=== PATIENT | female | born 1960 | race Caucasian/White ===

== ENCOUNTER 2017-09-27 06:57 | Observation (INO) | payer OTHER ==
[~2017-09-27] VITALS: Ht 160 cm; Wt 63.0 kg
--- NOTE | ~2017-09-27 | EC ---
PATIENT:LUPE ESCUDERO DATE OF SERVICE: 09/27/17 SEX: F MEDICAL RECORD: [id number] DATE OF : 60 LOCATION:D.M2 D.211 AGE OF PATIENT: 57 ADMISSION DATE: 09/27/17 REFERRING PHYSICIAN: INTERPRETING PHYSICIAN: HAILE HANKS MD ECHOCARDIOGRAM REPORT ECHO CHARGES 4 ECHO COMPLETE Date: 09/27 CLINICAL DIAGNOSIS: CP ECHOCARDIOGRAPHIC MEASUREMENTS (adult normal given) AC root (d.<3.7cm) 2.8 cm LV Septum d (<1.2 cm> 1.3 cm Valve Excursion 1.8 cm LV Septum (systole) 1.9 cm Left Atria (s.<4.0cm> 3.5 cm LVPW d(<1.2cm) 1.1 cm RV (d.<2.3cm) 2.3 cm LVPW (sytole) 1.6 cm LV diastole(<5.6CM) 4.6 cm MV E-F(>70mm/sec) cm LV systole 2.4 cm LVOT Diameter 1.7 cm MV exc.(>10mm) cm Est.ejection fraction (50-75%) % DOPPLER: LVIT cm/sec A 69.0 cm/sec E 98.0 cm/sec LA cm/sec RVSP 41.0 mmHg LVOT 95.0 cm/sec AOP1/2T m/s Asc. Ao 136 cm/sec RVOT 65.0 cm/sec RA cm/sec PA 73.0 cm/sec AV Gradient Peak 7.4 mmHg AV Mean 3.6 mmHg AV Area 1.5 cm MV Gradient Peak 3.7 mmHg MV Mean 1.3 mmHg MV Area cm COMMENTS: Seo Professional: 1 [place] Dark Room Attendant: 4 Dr. Hanks TAPE# PACS Pericardial Effusion N DATE OF SERVICE: PROCEDURE: Transthoracic echocardiogram. FINDINGS: 1. Left ventricle normal size, normal shape, normal function. Ejection fraction 65%. 2. Left atrium is normal size, shape and function. 3. Aortic valve is normal. 4. Mitral valve: Trace mitral regurgitation and structurally normal. ECHOCARDIOGRAM REPORT [id number] LUPE ESCUDERO 5. Tricuspid valve is structurally normal with mild to moderate tricuspid regurgitation with an RVSP of 35-40 mmHg. 6. The pericardium is normal. 7. Right ventricle is normal. 8. The right atrium is normal. 9. The pulmonic valve has trace pulmonic insufficiency. 10. There is no pericardial effusion. CONCLUSION: This patient has mild left ventricular hypertrophy, otherwise normal echocardiogram. TRANSINT:[id number] Voice Confirmation ID: [id number] DOCUMENT ID: [id number] HAILE HANKS MD at 0819 CC: [id number] DICTATION DATE: 09/28/17 1010 AWARD MACHINE OPERATOR: 09/28/17 1424 DIS IN 09/28/17 [facility] [address] [place] [address]
--- NOTE | ~2017-09-27 | HEMODYNAMI ---
PATIENT:LUPE ESCUDERO MEDICAL RECORD: [id number] : 60 LOCATION:[facility] D.2118 ADMISSION DATE: 09/27/17 Generatedon:09/28/201714:37 Patient name: LUPE ESCUDERO Patient #: [id number] SSN: DO B: 1960 Date of study: 09/28/2017 Page: Of Hemodynamic Procedure Report Patient Data Patient Demographics Procedure consent was obtained First Name: LUPE Gender: Female Last Name: KOTA : 1960 Patient #: [id number] Age: 57 year(s) Race: Unknown Additional ID: [id number] Contact details Address: [address] [facility] [id number] State: [place] City: [place] Zip code: [address] Past Medical History Allergies Allergen Reaction Date Comments Reported Sulfa drugs 09/28/2017 Admission Admission Data Admission Date: 09/27/2017 Admission Time: 10:08 Room #: D.2118 Procedure Procedure Types Cath Procedure Diagnostic Procedure LHC LHC w/Coronaries Procedure Description Procedure Date Procedure Date: 09/28/2017 Procedure Start Time: 14:27 Procedure End Time: 14:36 Procedure Staff Name Function Rustam Larsen MD Performing Physician Sophia Velez RT Monitor Sherrell Almeida RN Nurse Anthony Covington RT Scrub Procedure Data Cath Procedure Fluoroscopy Diagnostic fluoroscopy Total fluoroscopy Time: 0.5 time: 0.5 min min Diagnostic fluoroscopy Total fluoroscopy dose: 209 dose: 209 mGy mGy Contrast Material Contrast Material Type Amount (ml) Isovue 370 30 Entry Location Entry Primary Successful Side Size Upsize Upsize Entry Closure [place] ccessful Closure Location (Fr) 1 (Fr) 2 (Fr) Remarks Device Remarks Radial Right 6 Fr Mechanical artery Short Compression Estimated blood loss: 5 ml Diagnostic catheters Device Type Used For End Catheter Placement DIAGNOSTIC [place] 110cm 5 LV Angiography Fr catheter ([id number]) DIAGNOSTIC [place] 110cm 5 Left Coronary Fr catheter ([id number]) Angiography DIAGNOSTIC [place] 110cm 5 Right Coronary Fr catheter (016686) Angiography Procedure Complications No complications Procedure Medications Medication Administration Route Dosage Oxygen NC 2 l/min Lidocaine 2% added to field 20 Heparin Flush Bag added to field 2 bags (1000units/500ml NS) 0.9% NaCl I.V. 100 ml/hr Radial Cocktail added to field 1 syringe (Verapomil 2mg/Nitro 400mcg/Heparin 1500units) Versed I.V. 1 mg Fentanyl I.V. 50 mcg Versed I.V. 1 mg Fentanyl I.V. 50 mcg Versed I.V. 1 mg Fentanyl I.V. 50 mcg Versed I.V. 1 mg Fentanyl I.V. 50 mcg Hemodynamics Rest Heart Rate: 54 (bpm) Pressure Samples Time Site Value (mmHg) Purpose Heart Use Rate(bpm) 14:30 LV 110/3,3 EDP 60 14:31 AO 84/62(73) Pullback 67 Gradients Valve Time Site Site 2 Mean SEP/DFP Peak To Heart Use 1 (mmHg) (sec/min) Peak Rate (mmHg) (bpm) Aortic 14:31 LV AO 67 84/62(73) Snapshots Pre Cath Intra NCS Post Cath Vital Signs Time Heart Resp SPO2 etCO2 NIBP (mmHg) Rhythm Pain Sedation Rate (ipm) (%) (mmHg) Status Level (bpm) 13:56:53 54 20 98 0 126/82(102) NSR 0 (11) 10(A) , No pain 14:01:32 53 20 98 21.7 117/71(91) NSR 0 (11) 10(A) , No pain 14:06:08 54 15 98 12 104/71(85) NSR 0 (11) 10(A) , No pain 14:10:41 54 16 99 17.2 112/74(94) NSR 0 (11) 10(A) , No pain 14:15:17 52 15 97 21 110/68(83) NSR 0 (11) 10(A) , No pain 14:19:52 51 16 96 11.2 107/70(85) NSR 0 (11) 10(A) , No pain 14:25:11 49 15 99 12 101/58(71) NSR 0 (11) 9(A) , No pain 14:29:44 54 12 98 6.7 114/74(92) NSR 0 (11) 9(A) , No pain 14:34:20 63 15 97 15 97/55(77) NSR 0 (11) 10(A) , No pain Medications Time Medication Route Dose Verified Delivered Reason Notes Effectiveness by by 14:14:48 Oxygen NC 2 l/min Rustam Wynne used for [facility] Almeida RN procedure 14:14:55 Lidocaine 2% added 20ml Rustam Rustam for local to vial [facility] anesthetic field MD ORTIZ 14:15:02 Heparin Flush added 2 bags Rustam Easton used for Bag to [facility] procedure (1000units/500ml field MD ORTIZ NS) 14:15:12 0.9% NaCl I.V. 100 Rustam Polkie Per ml/hr [facility] Earl Almeida RN physician 14:15:59 Versed I.V. 1 mg Rustam Polkie for sedation [facility] Almeida RN, MD 14:16:06 Fentanyl I.V. 50 mcg Rustam Polkie for sedation [facility] Almeida RN, MD 14:20:25 Versed I.V. 1 mg Rustam Polkie for sedation [facility] Almeida RN, MD 14:20:28 Fentanyl I.V. 50 mcg Rustam Polkie for sedation [facility] Al[facility] RN, MD 14:24:47 Versed I.V. 1 mg Rustam Polkie for sedation [facility] Almeida RN, MD 14:24:50 Fentanyl I.V. 50 mcg Rustam Polkie for sedation [facility] Al[facility]ida RN, MD 14:30:11 Radial Cocktail added 1 Rustam Rustam for (Verapomil to syringe [facility] vasodilation 2mg/Nitro field MD ORTIZ 400mcg/Heparin 1500units) 14:31:50 Versed I.V. 1 mg Rustam Polkie for sedation [facility] Almeida RN, MD 14:31:54 Fentanyl I.V. 50 mcg Rustam Polkie for sedation [facility] Earl Almeida RN, MD Procedure Log Time Note 13:13:25 Time tracking: Regular hours (M-F 7:00 - 5:00) 13:13:30 Plan of Care:Hemodynamics will remain stable., Cardiac rhythm will remain stable., Comfort level will be maintained., Respiratory function will remain adequate., Patient/ family verbilizes understanding of procedure., Procedure tolerated without complication., Recovers from procedure without complications.. 13:37:30 Sophia Velez RT(R) sent for patient. Start room use. 13:46:51 Patient received from PCU to CCL 1 Alert and oriented. Tansferred to table in Supine position. 13:56:05 Warm blankets applied, and trudi hugger turned on for patient comfort. 13:56:06 Correct patient and procedure confirmed by team. 13:56:07 Signed procedure consent form obtained from patient. 13:56:08 ECG and BP/O2 sat monitors applied to patient. 13:56:08 Vital chart was started 14:00:29 Full Disclosure recording started 14:00:31 Rhythm: sinus rhythm 14:00:35 Baseline sample Acquired. 14:01:00 H&P Date Dictated: 09/27/2017 Within 30 days and on chart.. 14:01:01 Pre-procedure instructions explained to patient. 14:01:01 Pre-op teaching completed and patient verbalized understanding. 14:01:03 Family in patients room. 14:01:13 Patient NPO since Midnight. 14:01:27 Patient allergic to Sulfa drugs 14:01:29 Is the patient allergic to Iodine/contrast media? No. 14:01:31 Is patient on blood thinner?No 14:01:34 Patient diabetic? No. 14:01:39 Previous problem with sedation/anesthesia? No ? 14:01:40 Snore? Yes 14:01:41 Sleep apnea? No 14:01:42 Deviated septum? No 14:01:43 Opens mouth fully? Yes 14:01:44 Sticks out tongue? Yes 14:01:46 Airway obstruction? No ? 14:01:48 Dentures? No ? 14:01:51 Pre procedure: right dorsailis pedis pulse 2+ Normal; easily identifiable; not easily obliterated 14:01:53 Modified Jose David's test Ulnar < 7 seconds 14:01:55 Patient pain scale 0/10 ?. 14:02:00 IV patent on arrival in right forearm with 0.9% NaCl at [facility]. 14:02:04 Lab results completed and on chart. 14:02:10 Right Radial & Right Groin area was prepped with chlora-prep and draped in sterile fashion 14:02:11 Alarms reviewed by R. N. 14:02:11 Sharps counted by scrub and verified by R.N. 14:03:23 Use device set Radial Dx or PCI 14:03:24 ACIST Syringe (78636) opened to sterile field. 14:03:24 Medline Cath Pack ([id number]) opened to sterile field. 14:03:25 Bag Decanter (2001S) opened to sterile field. 14:03:25 DIAGNOSTIC WIRE .035 260cm J wire (639833) opened to sterile field. 14:03:26 ACIST Hand Control (06726) opened to sterile field. 14:03:26 ACIST Manifold (58581) opened to sterile field. 14:03:27 Tegaderm 4 x 4 (1626W) opened to sterile field. 14:03:29 MBrace Wrist Support ([id number]) opened to sterile field. 14:03:30 SHEATH 6Fr Prelude Radial ([id number]) opened to sterile field. 14:10:17 Final Timeout: patient, procedure, and site verified with staff and physician. All members of the team are in agreement. 14:10:25 Right Radial site verified by team. 14:10:28 Physical assessment completed. ASA score P 2 - A patient with mild systemic disease as per Rustam Larsen MD. 14:10:32 Sedation plan: IV Moderate Sedation Medication:Versed, Fentanyl 14:14:48 Oxygen 2 l/min NC was administered by Sherrell Almeida RN; used for procedure; 14:14:55 Lidocaine 2% 20ml vial added to field was administered by Rustam Larsen MD; for local anesthetic; 14:15:02 Heparin Flush Bag (1000units/500ml NS) 2 bags added to field was administered by Rustam Larsen MD; used for procedure; 14:15:12 0.9% NaCl 100 ml/hr I.V. was administered by Sherrell Almeida RN; Per physician; 14:15:59 Versed 1 mg I.V. was administered by Sehrrell Almeida RN; for sedation; 14:16:06 Fentanyl 50 mcg I.V. was administered by Sherrell Almeida RN; for sedation; 14:16:13 Zero performed for pressure channel P1 14:20:25 Versed 1 mg I.V. was administered by Sherrell Almeida RN; for sedation; 14:20:28 Fentanyl 50 mcg I.V. was administered by Sherrell Almeida RN; for sedation; 14:24:47 Versed 1 mg I.V. was administered by Sherrell Almeida RN; for sedation; 14:24:50 Fentanyl 50 mcg I.V. was administered by Sherrell Almeida RN; for sedation; 14:27:48 Procedure started. 14:27:57 Local anesthetic to right radial artery with Lidocaine 2% by Rustam Larsen MD.INITIAL ACCESS ONLY 14:29:47 A 6 Fr Short sheath was inserted into the Right Radial artery 14:30:08 A DIAGNOSTIC [place] 110cm 5 Fr catheter ([id number]) was advanced over the wire and used for LV Angiography. 14:30:11 Radial Cocktail (Verapomil 2mg/Nitro 400mcg/Heparin 1500units) 1 syringe added to field was administered by Rustam Larsen MD; for vasodilation; 14:31:00 LV gram done using KNOX 14:31:04 Injector settings: Ml/sec: 5, Volume: 15, 14:31:06 LV hemodynamics recorded. 14:31:10 EF : 60 % 14:31:50 Versed 1 mg I.V. was administered by Sherrell Almeida RN; for sedation; 14:31:50 A DIAGNOSTIC [place] 110cm 5 Fr catheter ([id number]) was advanced over the wire and used for Left Coronary Angiography. 14:31:54 Fentanyl 50 mcg I.V. was administered by Sherrell Almeida RN; for sedation; 14:32:26 A DIAGNOSTIC [place] 110cm 5 Fr catheter (226697) was advanced over the wire and used for Right Coronary Angiography. 14:32:29 Catheter removed. 14:32:53 Sheath removed intact; hemostasis achieved with Mechanical Compression to the Right Radial artery. 14:33:04 Procedure ended.(Physican Out) 14:33:16 Fluoroscopy time 00.50 minutes. 14:33:20 Fluoroscopy dose: 209 mGy 14:33:20 Flurop Dose total: 209 14:33:24 Contrast amount:Isovue 370 30ml. 14:33:26 Sharps counted by scrub and verified by R.N. 14:33:29 TR band inflated with 12cc of air. 14:33:30 Insertion/operative site no bleeding no hematoma. 14:33:37 Post right radial artery:stable, clean and dry 14:33:39 Post Procedure Pulses reassessed and unchanged 14:33:42 Post-procedure physical assessment completed. ASA score P 2 - A patient with mild systemic disease as per Rustam Larsen MD. 14:33:44 Post procedure rhythm: unchanged. 14:33:47 Estimated blood loss: 5 ml 14:33:49 Post procedure instruction explained to patient.Patient verbalizes understanding. 14:33:49 Patient needs reinforcement of post procedure teaching. 14:34:53 Procedure Complication : No complications 14:34:56 See physician's report for complete and final results. 14:35:06 TR BAND Standard ([id number]) opened to sterile field. 14:36:23 Procedure and supply charges have been captured, reviewed, submitted and are correct. 14:36:34 Vital chart was stopped 14:36:39 Report given to PCU. 14:36:42 Patient transfered to PCU with Bed. 14:36:51 Procedure ended. 14:36:51 Full Disclosure recording stopped 14:36:54 End room use (Document Last) Device Usage Item Name Manufacture Quantity Catalog Number Hospital Part Current M inimal Lot# / Charge Number Stock Stock Serial# Code ACIST Syringe Acist 1 03848 671289 245769 592202 2 0 (13083) [employer] Medline Cath Cardinal 1 [id number] 832555 35527 628583 5 [facility] ([id number]) Bag Decanter Microtek 1 2001S 026802 64057 623351 5 (2001S) Medical Inc. DIAGNOSTIC WIRE St Mayank 1 880279 374616 932634 212428 3 0 .035 260cm J wire (178027) ACIST Hand Acist 1 40034 275060 933072 083336 5 Control (32155) [employer] Inc ACIST Manifold Acist 1 81703 755784 396531 274723 5 (50978) [employer] Inc Tegaderm 4 x 4 3M 1 1626W 933627 715504 570783 5 (1626W) MBrace Wrist Advanced 1 140-0250-00 847484 43287 266697 5 Support Vascular ([id number]) Dynamics SHEATH 6Fr Merit 1 [id number] 760355 982189 441403 5 Prelude Radial Medical ([id number]) DIAGNOSTIC Terumo 1 61-5272 783218 114562 442505 5 [place] 110cm 5 Fr catheter (412513) TR BAND Terumo 1 [id number] 261896 284543 654641 4 0 Standard ([id number]) Signature Audit Boyce Stage Time Signature Unsigned Intra-Procedure 09/28/2017 Sophia 2:37:38 PM Counts RT(R) Signatures Monitor : Sophia Signature : Counts RT Date : Time : [address] [place] [address]
--- NOTE | ~2017-09-27 | OP ---
PATIENT NAME: LUPE ESCUDERO MEDICAL RECORD: [id number] :60 LOCATION:D.M2 D.2118 ADMISSION DATE:09/27/17 SURGEON: GABRIELLA PIERRE MD DATE OF OPERATION: 09/28/2017 PROCEDURE: Left heart catheterization, selective coronary angiography, right radial approach. CATHETERS: Radial sheath, [place] catheter. The procedure was well tolerated. The patient returned to the zapata and sheath was removed. TR band was placed. FINDINGS: Left ventriculography in 30-degree KNOX view: Normal wall motion, normal systolic function. CORONARY ANATOMY: LEFT MAIN: Left main is free of disease. LAD: Free of disease as is diagonal system. CIRCUMFLEX: Free of disease as is marginal system. RIGHT CORONARY ARTERY: Dominant artery, gives rise to PDA, free of disease. IMPRESSION: Normal systolic function, normal coronary anatomy. TRANSINT:[id number] Voice Confirmation ID: [id number] DOCUMENT ID: [id number] GABRIELLA PIERRE MD at 1214 CC: [id number] DICTATION DATE: 09/28/17 1439 COTTON TIPPER: 09/28/17 1707 DIS IN 09/28/17 [facility] [address] [place] [address]
[2017-09-27 07:23] LABS: BASOPHILS 0.3 % (0-2); EOSINOPHILS 1.5 % (0-7); HEMATOCRIT 35.7 % (36.0-48.0); HEMOGLOBIN 12.7 g/dL (12-16); IMMATURE GRANULOCYTES 0.1 % (0-5); LYMPHOCYTES 47.6 % (15-50); MCH 31.4 pg (26.0-34.0); MCHC 35.6 g/dL (31.0-37.0); MCV 88.4 fL (80.0-100.0); MEAN PLATELET VOLUME 9.6 fL (7.4-10.4); MONOCYTES 7.4 % (2-11); NEUTROPHILS 43.1 % (40-80); PLATELET COUNT 300 10x3/uL (130-400); RBC 4.04 10x6/uL (4.00-5.40); RDW 12.7 % (11.5-14.5); WBC 6.8 10x3/uL (4.8-10.8)
[2017-09-27 08:08] LABS: ALBUMIN 3.7 g/dL (3.4-5.0); ALKALINE PHOSPHATASE 55 U/L (46-116); ALT (SGPT) 29 U/L (10-68); CALC OSMOLALITY 286 mosm/kg (275-300); CALCIUM 9.5 mg/dL (8.5-10.1); CARBON DIOXIDE 24.8 mmol/L (21.0-32.0); CHLORIDE - SERUM 106 mmol/L (98-107); CREATININE - SERUM 1.1 mg/dL (0.6-1.3); GLUCOSE 129 mg/dL (74-106); PROTEIN - SERUM 7.2 g/dL (6.4-8.2); SODIUM 141 mmol/L (136-145); UREA NITROGEN 24 mg/dL (7-18); eGFR NON AFRICAN AMERICAN 54 mL/min (90-120)
[2017-09-27 08:20] LABS: CREATINE KINASE 135 UL (21-215); TROPONIN-I < 0.017 ng/mL (0.000-0.060)
[2017-09-27] MEDS ORDERED: BYSTOLIC2.5 MG PO (11:06)
[2017-09-27] MEDS ORDERED: SYNTHROID125 MCG PO (11:07)
[2017-09-27] MEDS ORDERED: ESTRACE1 MG PO (11:08)
[2017-09-27] MEDS ORDERED: HYZAAR 100-25 T1 TAB PO (11:08)
[2017-09-27] MEDS ORDERED: NEXIUM40 MG PO (11:09)
[2017-09-27 11:26] VITALS: BP 127/68; BMI 25.0
[2017-09-27 12:52] VITALS: Ht 160 cm; Wt 63.0 kg
[2017-09-27 14:29] VITALS: BP 127/68
[2017-09-27 16:21] VITALS: BP 120/70
[2017-09-27 19:00] VITALS: BP 100/61
[2017-09-28 00:22] VITALS: BP 118/72
[2017-09-28 04:00] VITALS: BP 87/61
[2017-09-28 05:32] LABS: HEMATOCRIT 35.8 % (36.0-48.0); HEMOGLOBIN 12.7 g/dL (12-16); MCH 31.3 pg (26.0-34.0); MCHC 35.5 g/dL (31.0-37.0); MCV 88.2 fL (80.0-100.0); MEAN PLATELET VOLUME 10.2 fL (7.4-10.4); PLATELET COUNT 303 10x3/uL (130-400); RBC 4.06 10x6/uL (4.00-5.40); RDW 12.7 % (11.5-14.5); WBC 5.5 10x3/uL (4.8-10.8)
[2017-09-28 05:50] LABS: CALCIUM 8.6 mg/dL (8.5-10.1); CARBON DIOXIDE 24.2 mmol/L (21.0-32.0); CHLORIDE - SERUM 106 mmol/L (98-107); POTASSIUM - SERUM 3.2 mmol/L (3.5-5.1); SODIUM 140 mmol/L (136-145); eGFR NON AFRICAN AMERICAN 78 mL/min (90-120)
[2017-09-28 05:54] LABS: CALC OSMOLALITY 278 mosm/kg (275-300); CREATININE - SERUM 0.8 mg/dL (0.6-1.3); GLUCOSE 81 mg/dL (74-106); UREA NITROGEN 15 mg/dL (7-18)
[2017-09-28 06:11] LABS: BASOPHILS 1 % (0-2); EOSINOPHILS 3 % (0-7); LYMPHOCYTES 53 % (15-50); MONOCYTES 3 % (2-11); NEUTROPHILS 40 % (40-80)
[2017-09-28 06:12] LABS: PLATELET ESTIMATE NORMAL
[2017-09-28 08:13] VITALS: BP 114/63
[2017-09-28 12:51] VITALS: BP 105/69
== END 2017-09-28 20:35 | disposition home or self-care (01) ==
LOC: D.ER 06:57 → OBSVTIME 10:08 → D.M2 10:08 → D.EDHOLD 10:08 → D.M2 10:40
PROVIDERS: Family Medicine
DX: I25.119 Atherosclerotic heart disease of native coronary artery with unspecified angina pectoris (principal); I10 Essential (primary) hypertension; E03.9 Hypothyroidism, unspecified; K21.9 Gastro-esophageal reflux disease without esophagitis; N17.9 Acute kidney failure, unspecified; E87.6 Hypokalemia; Z87.891 Personal history of nicotine dependence